=== PATIENT | female | born 2005 | race African-American/Black ===

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

== ENCOUNTER 2023-04-25 16:34 | Outpatient (CLI) | payer OTHER ==
[2023-04-25 16:46] LABS: PLATELET COUNT 289 K/uL (152-353)
[2023-04-25 17:03] LABS: POTASSIUM 3.7 mmol/L (3.6-5.2)
== END 2023-04-25 19:28 | disposition home or self-care (01) ==
LOC: LABW 16:34
PROVIDERS: ATTEND Pediatrics
DX: R63.0 Anorexia (principal)
CPT/HCPCS: 36415; 80048; 85027